=== PATIENT | female | born 1990 | race Caucasian/White ===

== ENCOUNTER 2019-05-27 12:24 | Emergency (ER) | payer SELFPAY ==
--- NOTE | 2019-05-27 16:03 | RAD ---
EXAM: Chest 2 views: HISTORY: Cough and fever COMPARISON: None. FINDINGS: There is a normal-sized cardiomediastinal silhouette. There is no evidence of consolidation, mass, or pleural effusion. The bones are unremarkable. IMPRESSION: No evidence of acute cardiopulmonary disease
== END 2019-05-27 18:18 | disposition home or self-care (01) ==
LOC: ERS 12:24
DX: J10.1 Influenza due to other identified influenza virus with other respiratory manifestations (principal)
CPT/HCPCS: 71046; 87804